=== PATIENT | male | born 1985 | race African-American/Black ===

== ENCOUNTER 2021-06-05 14:29 | Emergency (ER) | payer OTHER ==
[~2021-06-05] VITALS: Ht 185.4 cm; Wt 95.5 kg
[2021-06-05 17:06] LABS: BASO # 0.1 10^3/uL (0.0-0.2); BASO % 0.6 % (0.0-1.0); EOS # 0.4 10^3/uL (0.0-0.5); EOS % 5.4 % (0.0-3.0); HEMATOCRIT 44.4 % (42.0-52.0); HEMOGLOBIN 14.6 g/dl (13.5-17.5); LYMPH # 2.6 10^3/uL (1.5-5.0); LYMPH % 32.3 % (24.0-44.0); MEAN CORPUSCULAR HEMOGLOBIN 27.4 pg (27.0-33.0); MEAN CORPUSCULAR HGB CONC 32.9 g/dl (32.0-36.5); MEAN CORPUSCULAR VOLUME 83.3 fl (80.0-96.0); MONO # 0.6 10^3/uL (0.0-0.8); NEUTROPHILS # 4.2 10^3/uL (1.5-8.5); NEUTROPHILS % 53.3 % (36.0-66.0); PLATELET COUNT, AUTOMATED 211 10^3/uL (150-450); RED BLOOD COUNT 5.33 10^6/uL (4.30-6.10); WHITE BLOOD COUNT 7.9 10^3/uL (4.0-10.0)
[2021-06-05 17:31] LABS: ERYTHROCYTE SEDIMENTATION RATE 6 mm/hr (0-15)
[2021-06-05 18:01] LABS: ALBUMIN 4.1 GM/DL (3.2-5.2); ALT/SGPT 32 U/L (12-78); BILIRUBIN,TOTAL 0.3 MG/DL (0.2-1.0); BLOOD UREA NITROGEN 13 MG/DL (7-18); CARBON DIOXIDE LEVEL 29 MEQ/L (21-32); CHLORIDE LEVEL 107 MEQ/L (98-107); CREATININE FOR GFR 1.03 MG/DL (0.70-1.30); GLOMERULAR FILTRATION RATE > 60.0 (>60); GLUCOSE, FASTING 92 MG/DL (70-100); POTASSIUM SERUM 4.3 MEQ/L (3.5-5.1); SODIUM LEVEL 139 MEQ/L (136-145); TOTAL PROTEIN 7.9 GM/DL (6.4-8.2)
[2021-06-05] MEDS ORDERED: NAPR-885 PO (18:43)
[2021-06-05 19:04] VITALS: BP 134/84
== END 2021-06-05 19:05 | disposition home or self-care (01) ==
LOC: M ED 14:29
DX: M54.9 Dorsalgia, unspecified (principal); M54.30 Sciatica, unspecified side; M51.36 Other intervertebral disc degeneration, lumbar region; R09.81 Nasal congestion; Z86.16 Personal history of COVID-19

== ENCOUNTER → 2021-12-17 | Outpatient (CLI) | payer OTHER ==
[~2021-12-17] MED LIST: NAPR-885 PO
== END ==
LOC: M CARPUL 09:10
PROVIDERS: ATTEND Internal Medicine Cardiovascular Disease
DX: R94.31 Abnormal electrocardiogram [ECG] [EKG] (principal); R07.9 Chest pain, unspecified; I51.7 Cardiomegaly

== ENCOUNTER 2022-01-30 10:56 | Emergency (ER) | payer OTHER ==
[~2022-01-30] VITALS: Ht 185.4 cm; Wt 90.9 kg
[2022-01-30 12:29] LABS: HEMATOCRIT 42.3 % (42.0-52.0); HEMOGLOBIN 13.3 g/dl (13.5-17.5); MEAN CORPUSCULAR HEMOGLOBIN 26.8 pg (27.0-33.0); MEAN CORPUSCULAR HGB CONC 31.4 g/dl (32.0-36.5); MEAN CORPUSCULAR VOLUME 85.1 fl (80.0-96.0); PLATELET COUNT, AUTOMATED 192 10^3/uL (150-450); RED BLOOD COUNT 4.97 10^6/uL (4.30-6.10); WHITE BLOOD COUNT 6.1 10^3/uL (4.0-10.0)
[2022-01-30 13:05] LABS: RSV AMPLIFICATION NEGATIVE (NEGATIVE)
[2022-01-30 13:20] LABS: ACETAMINOPHEN LEVEL < 2.0 UG/ML (10.0-30.0); ALBUMIN 3.6 GM/DL (3.2-5.2); ALT/SGPT 31 U/L (12-78); BILIRUBIN,DIRECT < 0.1 MG/DL (0.0-0.2); BILIRUBIN,TOTAL 0.2 MG/DL (0.2-1.0); BLOOD UREA NITROGEN 12 MG/DL (7-18); CALCIUM LEVEL 8.6 MG/DL (8.5-10.1); CARBON DIOXIDE LEVEL 26 MEQ/L (21-32); CHLORIDE LEVEL 110 MEQ/L (98-107); CREATININE FOR GFR 1.12 MG/DL (0.70-1.30); ETHYL ALCOHOL (ETHANOL) 0.005 % (0.000-0.010); GLOMERULAR FILTRATION RATE > 60.0 (>60); GLUCOSE, FASTING 105 MG/DL (70-100); POTASSIUM SERUM 4.3 MEQ/L (3.5-5.1); SALICYLATE LEVEL < 1.7 MG/DL (5.0-30.0); SODIUM LEVEL 142 MEQ/L (136-145); THYROID STIMULATING HORMONE 0.555 uIU/ML (0.358-3.740)
[2022-01-30 13:21] LABS: AMPHETAMINES LEVEL URINE NEGATIVE (NEGATIVE); BARBITURATES URINE NEGATIVE (NEGATIVE); BENZODIAZEPINES URINE NEGATIVE (NEGATIVE); CANNABINOIDS URINE NEGATIVE (NEGATIVE); COCAINE METABOLITE URINE NEGATIVE (NEGATIVE); METHADONE URINE NEGATIVE (NEGATIVE); OPIATES URINE NEGATIVE (NEGATIVE); PHENCYCLIDINE URINE NEGATIVE (NEGATIVE)
[2022-01-30] MEDS ORDERED: CETI5TA PO (15:20)
[2022-01-30] MEDS ORDERED: TIZA2CAP PO (15:20)
[2022-01-30] MEDS ORDERED: DRIS50003 PO (15:20)
[2022-01-30] MEDS ORDERED: SUMA25TA3 PO (15:20)
[2022-01-30] MEDS ORDERED: GABA-282 PO (15:20)
[2022-01-30] MEDS ORDERED: HOME MED LIST COMPLETE! XX SCH (15:25)
[2022-01-30] MEDS ORDERED: NAPR-885 PO (15:26)
[2022-01-30] MEDS ORDERED: SUMAtriptan SUCCINATE 25 MG TAB PO PRN (17:05)
[2022-01-30] MEDS ORDERED: NAPROXEN 250 MG TAB PO PRN (17:05)
[2022-01-30] MEDS ORDERED: PILL CUTTER 1 EACH XX ONE (20:37)
[2022-01-30] MEDS ORDERED: GABAPENTIN 300 MG CAP PO SCH (21:00)
[2022-01-30] MEDS ORDERED: tiZANidine 4 MG TAB PO SCH (21:00)
[2022-01-30 23:00] VITALS: BP 124/74
== END 2022-01-30 23:03 ==
LOC: M ED 10:56
DX: R45.851 Suicidal ideations (principal); G47.33 Obstructive sleep apnea (adult) (pediatric)

== ENCOUNTER 2022-05-08 11:19 | Day surgery (SDC) | payer OTHER ==
[~2022-05-08] VITALS: Ht 185.4 cm; Wt 101.3 kg
[~2022-05-08 11:19] MED LIST changes: +CETI5TA PO; +DRIS50003 PO; +GABA-282 PO; +NS 1,000 ML IV ONE; +SUMA25TA3 PO; +TIZA2CAP PO
[2022-05-08] MEDS ORDERED: propofoL 200 MG/20 ML VIAL As Ordered ONE ×3 (13:50→13:59)
[2022-05-08] MEDS ORDERED: LIDOCAINE 2% 100MG/5ML SDV (FOR ANES.) As Ordered ONE (13:50)
[2022-05-08 14:19] VITALS: BP 118/67
== END 2022-05-08 14:38 | disposition home or self-care (01) ==
LOC: M OPP 11:19
PROVIDERS: ATTEND Internal Medicine Gastroenterology
DX: K64.0 First degree hemorrhoids (principal); K59.04 Chronic idiopathic constipation; K31.89 Other diseases of stomach and duodenum; K21.00 Gastro-esophageal reflux disease with esophagitis, without bleeding; E78.00 Pure hypercholesterolemia, unspecified; J45.909 Unspecified asthma, uncomplicated; E11.9 Type 2 diabetes mellitus without complications; G47.33 Obstructive sleep apnea (adult) (pediatric); Z79.52 Long term (current) use of systemic steroids